=== PATIENT | female | born 1950 | race Caucasian/White ===

== ENCOUNTER 2016-06-21 10:19 | Emergency (ER) | payer OTHER ==
[2016-06-21 10:44] LABS: BASOPHIL 0.2 % (0-2); EOSINOPHIL 0.4 % (0-7); HCT 42.5 % (37.0-47.0); HGB 14.3 g/dl (12.5-16.0); LYMPHOCYTE 18.9 % (15-48); MCH 30.7 pg (25.0-31.0); MCHC 33.6 g/dL (32.0-36.0); MCV 91.2 fL (78.0-100.0); MONOCYTE 8.5 % (0-12); MPV 12.3 fL (6.0-9.5); PLT 177 K/uL (150-400); RBC 4.66 M/uL (4.20-5.40)
[2016-06-21 11:04] LABS: CREATININE 0.8 mg/dL (0.5-1.0); MAGNESIUM 1.95 mg/dL (1.40-2.10); POTASSIUM 3.1 mmol/L (3.5-5.1)
== END 2016-06-21 12:51 | disposition home or self-care (01) ==
LOC: FER 10:19
PROVIDERS: Internal Medicine
DX: E87.6 Hypokalemia (principal); K52.9 Noninfective gastroenteritis and colitis, unspecified; I10 Essential (primary) hypertension; E03.9 Hypothyroidism, unspecified; Z88.2 Allergy status to sulfonamides; Z88.5 Allergy status to narcotic agent; Z79.899 Other long term (current) drug therapy
CPT/HCPCS: 36415; 80048; 83735; 85025; 99284